=== PATIENT | female | born 1970 | race Hispanic/Latino ===

== ENCOUNTER 2021-10-28 12:46 | Observation (INO) | payer BC ==
--- OUTSIDE RECORDS SUMMARY | 2021-10-28 15:09 | XMS REPORT | Continuity of Care Document ---
:1970 Author Organization [facility] t Address [address] [place] [address] Care Team Providers Name Role Phone Unavailable Unavailable Unavailable Problems This patient has no known problems. Allergies, Adverse Reactions, Alerts This patient has no known allergies or adverse reactions. Medications This patient has no known medications. Procedures This patient has no known procedures. Results Test Description Test Time Test Comments Results Result [facility] e Comments BREAST ULTRASOUND 2019-01-12 - BREAST ULTRASOUND BILATERAL 6 BILATERALULTRASOUND OF 10:27:24 BOTH BREASTS AND BOTH AXILLA: 02/05/2019CLINICAL: Recall from screening. Comparison is made to exam dated 08/01/2012 ultrasound - [facility]. Color flow and real-time ultrasound of both breasts and both axilla were performed. Marvin scale images of the real-time examination were reviewed. LEFT BREAST:At the 1 o'clock position, 1 cm from the nipple, a simple subcentimeter cyst is noted.At the 12 o'clock position, 4 cm from the nipple, there is a benign fibroadenoma measuring 6 x 8 x 4 mm. This is stable from the prior study at which time it measured 5 x 8 x 5 mm.RIGHT BREAST:At the 10 o'clock position, 6 cm from the nipple, there is a complex cyst or benign fibroadenoma measuring 9 x 10 x 4 mm.No abnormalities were seen sonographically in either axilla. IMPRESSION: BENIGN Benign fibrocystic and fibroadenomatous changes. There is no sonographic evidence of malignancy. Resume annual mammogram screening schedule is recommended. Dianna vega/:02/05/2019 10:27:24 Entry: cc - 02/08/2019 09:28:12Imaging Technologist: Corina Contreras, [facility]-RGletter sent: BIRADS 1-2 Normal Ultrasound BI-RADS: 2 Benign SCR MAMM 1 - SCR MAMM BILATERAL LAUREANO BILATERAL LAUREANO 3 CAD DIGITALBILATERAL CAD DIGITAL 14:40:49 DIGITAL SCREENING MAMMOGRAM 3D/2D WITH CAD: 11/10/2018CLINICAL: Asymptomatic. Digital breast tomosynthesis was performed in addition to routine CC and MLO views. Current mammographic images were evaluated by either a Rowl M-Vu or a Arithmatica ImageiHealthNetworkscker CAD (computer aided detection system). Comparison is made to exams dated 11/07/2014 mammogram and 07/21/2012 mammogram - [facility]. The tissue of both breasts is heterogeneously dense. This may lower the sensitivity of mammography. There are nodular densities bilaterally that most likely represent benign fibroadenomas, cysts, or nodular breast tissue, however this must be confirmed with ultrasound. No suspicious mass, architectural distortion, malignant type calcification, or lymph node abnormality detected. IMPRESSION: INCOMPLETE ASSESSMENT: ADDITIONAL IMAGING EVALUATION RECOMMENDEDUltrasound recommended. Mary Nunez M.D. dm/:11/23/2018 14:40:49 Records And Information Manager: Karyn Reyes MM, [facility] Mammographyletter sent: Additional Imaging Mammogram BI-RADS: 0 Indeterminate
[2021-10-28 16:41] VITALS: BMI 28.3
[2021-10-28] MEDS ORDERED: LIDOCAINE 1% 20 ML MDV ONE (16:43)
[2021-10-28] MEDS ORDERED: propofoL 200 MG/20 ML VIAL IV ONE (16:52)
[2021-10-28] MEDS ORDERED: LIDOCAINE 2% MPF 5 ML VIAL ONE (16:52)
[2021-10-28] MEDS ORDERED: dexAMETHasone 10 MG/ML VIAL ONE (16:53)
[2021-10-28] MEDS ORDERED: FENTANYL CITR 100 MCG/2 ML ONE (16:53)
[2021-10-28] MEDS ORDERED: KETOROLAC 30 MG/ML INJ ONE (16:53)
[2021-10-28] MEDS ORDERED: ONDANSETRON 4 MG/2 ML VIAL ONE (16:53)
[2021-10-28] MEDS ORDERED: Ringers Lactate 1,000 ML IV SCH ×2 (17:00→18:00)
[2021-10-28 17:08] LABS: Absolute Lymphocytes (CBC) 2.7 K/uL (0.7-4.9); Hematocrit 39.5 % (36.0-45.0); Lymphocytes % 24.2 % (15.3-44.8); MPV 9.6 fL (7.6-11.3); RBC Red Blood Cell Count 4.77 M/uL (3.86-4.86)
[2021-10-28 17:10] LABS: Potassium 3.6 mmol/L (3.5-5.1)
[2021-10-28] MEDS: AMPICILLIN/SULBACT 3 GM in NA CHLORIDE 0.9% 100 ML IVPB SCH ×2 (17:12→23:54)
[2021-10-28] MEDS: METRONIDAZOLE 500mg IVPB 500 MG/100 ML BAG IV SCH (17:12)
--- NOTE | 2021-10-28 17:30 | P.BOP ---
Preoperative diagnosis: Left Bartholins gland abscess Postoperative diagnosis: same Primary procedure: Left Bartholins gland drainage, biopsy and marsupialization Cosmetic Account Coordinator: Lashaun Lazar Estimated blood loss: min Specimen: cultures, biopsy of bartholins wall Findings: 5--6cm abscess Anesthesia: General Complications: None Transferred to: Recovery Room Condition: Good
[2021-10-28] MEDS ORDERED: MORPHINE 2 MG/ML SYR IV PRN (17:31)
[2021-10-28] MEDS ORDERED: PROMETHAZINE INJ 25 MG/ML AMP IV PRN (17:31)
[2021-10-28] MEDS ORDERED: IBUPROFEN 200 MG TAB PO PRN (17:31)
[2021-10-28] MEDS ORDERED: LIDOCAINE 1% MPF 30 ML VIAL IJ ONE (17:52)
[2021-10-28 18:25] VITALS: O2SAT 100
[2021-10-28] MEDS: HYDROMORPHONE HCL 1 MG/ML INJ ONE ×2 (18:42→18:47)
[2021-10-28] MEDS ORDERED: METFORMIN HCL 500 MG TAB PO SCH (19:00)
[2021-10-29] MEDS: METRONIDAZOLE 500mg IVPB 500 MG/100 ML BAG IV SCH ×2 (01:00→08:45)
[2021-10-29 05:08] LABS: Absolute Lymphocytes (CBC) 1.4 K/uL (0.7-4.9); Hematocrit 37.1 % (36.0-45.0); Lymphocytes % 12.9 % (15.3-44.8); MPV 8.8 fL (7.6-11.3); RBC Red Blood Cell Count 4.42 M/uL (3.86-4.86)
[2021-10-29] MEDS: AMPICILLIN/SULBACT 3 GM in NA CHLORIDE 0.9% 100 ML IVPB SCH ×2 (05:54→12:11)
[2021-10-29] MEDS ORDERED: METFORMIN HCL 500 MG TAB PO SCH (08:00)
--- NOTE | 2021-10-29 10:39 | OP ---
Date of Procedure: 10/28/2021 Surgeon: Angela Reyez MD Roving Teller: Lashaun Lazar. Preoperative Diagnosis: Left Bartholin gland abscess. Postoperative Diagnosis: Left Bartholin gland abscess. Procedure Performed: Left Bartholin gland incision and drainage, then biopsy of the gland wall and m arsupialization. Estimated Blood Loss: Minimal. Specimens: Cultures, biopsy of the Bartholin wall. Findings: A 5-6 cm abscess without any superficial cellulitis with significant levels, just mild. T hen, the abscess cavity filled with purulent foul-smelling material, which was swabbed for specimen, aerobic and anaerobic cultures. Anesthesia: General. Complications: No complications. Drains: Packing inside the gland wall was placed. Condition: Transferred to the recovery room in stable condition. Indications: Patient is a 51-year-old diabetic lady presented due to referral from Dr. Nguyen and Marco Torrez with pain and swelling in the left Bartholin gland area. On examination in the office, there was significant swelling and pain, most likely Bartholin abscess, possibility of a vulvar cyst as well. She was consented and brought to the hospital for incision, drainage, marsupialization, an d possible other procedures as indicated. Procedure In Detail: She was admitted preoperatively, kept n.p.o. Unasyn and Flagyl were given. Si x hours after her last meal, took her to the OR. She was re-consented and taken back to OR, placed i n supine fashion on the operating table. General anesthesia was given. She was placed in a dorsal l ithotomy position. Vulva, vagina, and perineum were prepped and draped in a sterile fashion. Then, once she was positioned properly, an incision was made on the medial aspect of the labia minora start ing at the level of the gland opening that was occluded with the monopolar needle tip. Using cutting current, at least a 3 cm vertical incision was made. Then, once the abscess cavity was entered care fully. The opening was extended to span the entire incision made on the skin. Then, aerobic and sony erobic cultures were collected. Then, the entire cavity was drained carefully, thoroughly made sure that there were no pockets and the drainage was complete. Once this was done, thorough irrigation an d suction were performed with normal saline. Then, biopsy of the gland wall was done. After palpating the entire gland wall, there was no evidenc e of any irregular thickened areas from the medial inner aspect of the wall, where there was most thi ckening on the skin level, likely from her prior Bartholin abscess drainage, possibly causing scarrin g. The biopsy was taken in an elliptical fashion three quarter of a centimeter and this tissue was h anded off. Hemostasis was secured at the bottom with the help of the Bovie. This was irrigated agai n. Marsupialization was performed with 3-0 Vicryl sutures everting the edges of the Bartholin gland to t he skin edges, 4 sutures placed on each side and then 2 at the top and bottom angles. There was exce llent hemostasis. good opening. The cavity was well collapsed. I went ahead and packed this with 0 .25-inch Nu Gauze plain. A straight cath was done to drain the bladder. She was recovered from anesthesia. Instrument, needl e, and sponge counts were correct. EBL was minimal. She was taken to the PACU in stable condition. Plan is to keep her overnight for 24-hour observation, IV antibiotics x4 doses, and discharging her on Augmentin 875 b.i.d. for 7 days. Glycemic control recommended. She can follow up with Dr. Nguyen after discharge in a week. The gland packing will be pulled tomorrow. No need for further packing. Just needs to have wound care instructions and pain meds. ROXIE/ANYA Voice ID: [id number] Report ID: [id number]
[2021-10-29 12:23] VITALS: BP 110/56; TEMP 98
--- NOTE | 2021-10-29 12:40 | P.DS ---
Admission Date: 10/28/21 Discharge Date: 10/29/21 Disposition: ROUTINE DISCHARGE Discharge Condition: GOOD Reason for Admission: Bartholin's abscess drainage Procedures: Left Bartholin's gland incision and drainage, then biopsy of the gland wall and marsupialization Brief History of Present Illness: Patient presented to clinic with left labial pain and swelling for past 3 days. H/o similar issue about 15 years prior. She was direct admitted to the hospital for I&D of left Bartholin's gland abscess and marsupialization and treatment of cellulitis with IV Unasyn and Flagyl. Surgery was performed on 10/28/21. She tolerated the procedure well with no complications. S/p 24 hrs of IV abx. Packing was removed by nursing staff and surgical site is clean, dry, without signs of cellulitis. Pain is minimal and well controlled. She is discharged in stable condition. PO abx course will be sent to patient's pharmacy. She will follow up in clinic in 1 week. Hospital Course: Patient presented to clinic with left labial pain and swelling for past 3 days. H/o similar issue about 15 years prior. She was direct admitted to the hospital for I&D of left Bartholin's gland abscess and marsupialization and treatment of cellulitis with IV Unasyn and Flagyl. Surgery was performed on 10/28/21. She tolerated the procedure well with no complications. S/p 24 hrs of IV abx. Packing was removed by nursing staff and surgical site is clean, dry, without signs of cellulitis. Pain is minimal and well controlled. She is discharged in stable condition. PO abx course will be sent to patient's pharmacy. She will follow up in clinic in 1 week. Vital Signs/Physical Exam: Temp Pulse Resp BP Pulse Ox 98.0 F 67 17 110/56 L 99 10/29/21 12:00 10/29/21 12:00 10/29/21 12:00 10/29/21 12:00 10/29/21 07:40 General: Alert, In no apparent distress, Oriented x3 HEENT: Atraumatic, Normocephalic, PERRLA Neck: Supple Respiratory: Clear to auscultation bilaterally Cardiovascular: No edema Musculoskeletal: No swelling Integumentary: No rashes Neurological: Normal gait, Normal speech, Normal affect External genitalia: Other (2 cm incision at left lower labia with sutures in tact. Mild erythema and tenderness. No signs of drainage. ) Rectal: Normal Laboratory Data at Discharge: WBC 11.0 K/uL (4.3-10.9) H 10/29/21 04:48 Hgb 12.3 g/dL (12.0-15.0) 10/29/21 04:48 Hct 37.1 % (36.0-45.0) 10/29/21 04:48 Plt Count 235 K/uL (152-406) 10/29/21 04:48 Sodium 138 mmol/L (136-145) 10/28/21 16:15 Potassium 3.6 mmol/L (3.5-5.1) 10/28/21 16:15 BUN 14 mg/dL (7-18) 10/28/21 16:15 Creatinine 0.68 mg/dL (0.55-1.3) 10/28/21 16:15 Glucose 169 mg/dL (74-106) H 10/28/21 16:15 Home Medications: Metformin HCl 1,000 mg PO BID 10/28/21 Diet: ADA Activity: Ad bill Followup: Angela Reyez MD [ACTIVE - CAN ADMIT] -
== END 2021-10-29 13:30 | disposition home or self-care (01) ==
LOC: 2ND-WC 15:05
PROVIDERS: ADMIT Obstetrics & Gynecology; ATTEND Obstetrics & Gynecology
PROC: 0U9L00Z Drainage of Vestibular Gland with Drainage Device, Open Approach (ICD-10-PCS; principal; 2021-10-28 17:30)
DX: N75.1 Abscess of Bartholin's gland (principal); N76.2 Acute vulvitis; E11.65 Type 2 diabetes mellitus with hyperglycemia; Z79.84 Long term (current) use of oral hypoglycemic drugs; Z20.822 Contact with and (suspected) exposure to COVID-19
CPT/HCPCS: 87070; 85025 ×2; 80048; 36415; 87205; 82947 ×2; 88305; 87075; 87077; 87186; 56440; G0379; U0003; J2704; J3010; J1100; J1170; G0378 ×3; J7120; J0295; J3490; J2405; 88304